=== PATIENT | female | born 1980 | race Two or more races ===

== ENCOUNTER 2017-04-24 08:09 | Outpatient (CLI) | payer BC, OTHER ==
[2017-04-25 08:08] LABS: CORTISOL 7.6 ug/dL (.); FOLLICLE STIMULATION HORMONE 6.4 mIU/mL (.); LUTEINIZING HORMONE 5.2 mIU/mL (.); PROLACTIN 8.4 ng/mL (4.8-23.3)
[2017-04-28 15:09] LABS: ACTH, PLASMA 13.2 pg/mL (7.2-63.3)
== END 2017-04-24 23:59 | disposition home or self-care (01) ==
LOC: LAB 08:09
PROVIDERS: ATTEND Internal Medicine
DX: Z00.00 Encounter for general adult medical examination without abnormal findings (principal)
CPT/HCPCS: 36415; 82024; 82533; 83001; 83002; 84146; 84443

== ENCOUNTER 2017-12-23 07:33 | Outpatient (CLI) | payer BC, OTHER ==
[2017-12-23 08:32] LABS: BASOPHILS # (AUTO) 0.2 K/uL (0.0-8.0); BASOPHILS % (AUTO) 1.4 % (0.0-2.0); EOSINOPHILS # (AUTO) 0.4 K/uL (0.0-0.7); HEMOGLOBIN 13.8 g/dL (10.9-14.3); LYMPHOCYTES # (AUTO) 3.3 K/uL (20.0-40.0); LYMPHOCYTES % (AUTO) 26.1 % (20.5-51.5); MEAN CORPUSCULAR HGB CONC 34 g/dL (32.3-35.6); MEAN CORPUSCULAR VOLUME 81.3 fL (75.5-95.3); MONOCYTES # (AUTO) 0.5 K/uL (2.0-10.0); NEUTROPHILS # (AUTO) 8.3 K/uL (1.8-8.9); NEUTROPHILS % (AUTO) 65.5 % (38.5-71.5); PLATELET COUNT (AUTO) 320 K/uL (179-408); RED BLOOD CELL COUNT(AUTO) 4.92 MIL/uL (3.63-4.92); WHITE BLOOD COUNT (AUTO) 12.7 K/uL (3.8-11.8)
[2017-12-23 08:47] LABS: BILIRUBIN,TOTAL 0.4 mg/dL (0.2-1.0); CREATININE 0.8 mg/dL (0.6-1.3); MAGNESIUM 1.8 mg/dL (1.8-2.4); POTASSIUM 3.6 mmol/L (3.5-5.1); TOTAL PROTEIN, SERUM 7.7 g/dL (6.4-8.2); URIC ACID 4.7 mg/dL (2.6-6.0)
== END 2017-12-23 23:59 | disposition home or self-care (01) ==
LOC: LAB 07:33
PROVIDERS: ATTEND Family Medicine
DX: E11.65 Type 2 diabetes mellitus with hyperglycemia (principal); M79.671 Pain in right foot
CPT/HCPCS: 36415; 83735; 84550; 85025

== ENCOUNTER 2018-06-05 07:24 | Emergency (ER) | payer BC, OTHER ==
[~2018-06-05] VITALS: Ht 160 cm; Wt 93.9 kg
--- NOTE | 2018-06-05 07:44 | NUR ---
Macie chau in EDM - 06/05/18 at 0745 by FLORIAN PT.NOTED TO BE SINUS OLIVERIA [id number] - WAS NOTIFIED.
--- NOTE | 2018-06-05 08:00 | NUR ---
Patient discharged to home in stable conditon. Written and verbal after care instructions given. Patient verbalizes understanding of instructions.
== END 2018-06-05 08:02 | disposition home or self-care (01) ==
LOC: ER 07:26
DX: J40 Bronchitis, not specified as acute or chronic (principal); R07.89 Other chest pain; E11.9 Type 2 diabetes mellitus without complications
CPT/HCPCS: 71045; 93005; A4663